=== PATIENT | female | born 1995 | race Two or more races ===

== ENCOUNTER 2021-07-08 11:32 | Outpatient (REF) | payer OTHER, SELFPAY ==
[2021-07-08 14:23] LABS: Vitamin D 25-OH Total 24.2 ng/mL (>30)
== END 2021-07-08 11:33 | disposition home or self-care (01) ==
LOC: HO.HMGCLDS 11:32
PROVIDERS: PCP Internal Medicine; Visit Provider Internal Medicine
DX: Z00.00 Encounter for general adult medical examination without abnormal findings (principal)
CPT/HCPCS: 36415; 82306

== ENCOUNTER 2021-10-06 13:29 | Outpatient (REF) | payer OTHER, SELFPAY ==
[2021-10-06 16:50] LABS: Appearance Urine CLEAR; Color Urine YELLOW; Glucose Urine UA NEG (NEG); Leukocyte Esterase Urine 1+ (NEG); Nitrite Urine NEG (NEG); Specific Gravity - Urine 1.015 (1.005-1.025); UACC Culture Trigger YES; Urine Blood NEG (NEG); Urine Ketones NEG (NEG); Urine Protein NEG (NEG-TRACE)
[2021-10-06 17:08] LABS: Bacteria Urine 2+ /LPF; RBC Urine 0 /HPF (0); Renal Epithelial Cells Urine 1+ /LPF; Squamous Epithelial Cell Urine 3+ /LPF
[2021-10-06 17:21] LABS: Vitamin D 25-OH Total 37.9 ng/mL (>30)
== END 2021-10-06 13:30 | disposition home or self-care (01) ==
LOC: HO.HMGCLDS 13:29
PROVIDERS: Visit Provider Internal Medicine
DX: E55.9 Vitamin D deficiency, unspecified (principal)
CPT/HCPCS: 36415; 81001; 82306; 87086

== ENCOUNTER 2021-10-11 14:40 | Outpatient (REF) | payer OTHER, SELFPAY | END 2021-10-11 14:41 | disposition home or self-care (01) | LOC: HO.HMGCLDS 14:40 | PROVIDERS: PCP Internal Medicine; Visit Provider Internal Medicine | DX: N39.0 Urinary tract infection, site not specified (principal) | CPT/HCPCS: 87086 ==